=== PATIENT | female | born 1955 | race Caucasian/White ===

== ENCOUNTER 2020-04-06 07:00 | Emergency (ER) | payer MEDICAID, SELFPAY ==
[~2020-04-06] VITALS: Ht 162.6 cm; Wt 71.7 kg
[2020-04-06 07:17] VITALS: BP 140/80
--- NOTE | 2020-04-06 07:25 | NUR ---
PT AMB TO BED 9
--- NOTE | 2020-04-06 07:29 | NUR ---
PATIENT PRESENTS TO ED WITH SOB AND COVID POSITIVE . PT STATES SHE TESTED POSITIVE FOR COVID 2 DAYS AGO. PT WOKE UP IN THE MIDDLE OF THE NIGHT UNABLE TO BREATHE AND HER 02 LEVELS WOULD NOT RISE ABOVE 89. PT IS ON 2L OF O2 HERE AND LEVELS ARE 96-97%.PT WAS ALSO DX WITH BILATERAL PNA. DENIES N/V/D; SKIN IS PINK/WARM/DRY; AAOX4 WITH EVEN AND STEADY GAIT; HR EVEN AND REGULAR; PT DENIES ANY FEVER OR CP AT THIS TIME; PATIENT STATES PAIN OF 0/10 AT THIS TIME; PATIENT POSITIONED FOR COMFORT; HOB ELEVATED; BEDRAILS UP X2; BED DOWN. ER MD MADE AWARE OF PT STATUS. PMH- THYROID DISEASE, ASTHMA, COVID, PNA, BREAST CANCER
--- NOTE | 2020-04-06 08:14 | NUR ---
ermd at bedside evaluating pt
[2020-04-06 08:32] VITALS: BP 126/83
--- NOTE | 2020-04-06 08:33 | NUR ---
Patient discharged with v/s stable. Written and verbal after care instructions given and explained. Patient verbalized understanding. Ambulatory with steady gait. All questions addressed prior to discharge. Advised to follow up with PMD.
== END 2020-04-06 08:33 | disposition home or self-care (01) ==
LOC: MED 07:00
DX: U07.1 COVID-19 (principal); R06.02 Shortness of breath; E07.9 Disorder of thyroid, unspecified; Z90.89 Acquired absence of other organs; Z98.890 Other specified postprocedural states
CPT/HCPCS: 99281; 99283